=== PATIENT | male | born 1955 | race African-American/Black ===

== ENCOUNTER 2020-03-26 08:06 | Inpatient (IN) | payer OTHER ==
[~2020-03-26] VITALS: Ht 182.9 cm; Wt 64.0 kg
[2020-03-26 08:11] VITALS: BP 113/84
[2020-03-26] MEDS ORDERED: METFORMIN HCL500 M3 PO (08:30)
[2020-03-26] MEDS ORDERED: COZAAR 50 MG TA50 MG PO (08:31)
[2020-03-26] MEDS ORDERED: GABAPENTIN800 M1 PO (08:31)
[2020-03-26] MEDS ORDERED: ASA81BEC PO (08:31)
[2020-03-26] MEDS ORDERED: TOUJEO MAX300 UNIT/1 SUBQ (08:31)
[2020-03-26] MEDS ORDERED: NOVOLOG100 UNIT/M SUBQ (08:32)
[2020-03-26 08:43] LABS: ABSOLUTE NEUTROPHILS 3.7 thou/uL (1.4-8.2); BASOPHILS 0.5 % (0.0-2.0); EOSINOPHILS 1.2 % (0.0-3.0); HEMATOCRIT 47.2 % (42.0-52.0); HEMOGLOBIN 15.8 gm/dL (14.0-18.0); LYMPHOCYTES 35.7 % (24.0-44.0); MCH 33.7 pg (26.0-34.0); MCHC 33.5 g/dL (28.0-37.0); MCV 100.7 fL (80.0-100.0); MONOCYTES 7.4 % (1.0-8.0); PLATELET COUNT 226 thou/uL (150-400); POLYS 55.2 % (36.0-66.0); RBC 4.69 mil/uL (4.50-6.00); RDW 15.1 % (10.5-14.5); WBC 6.8 thou/uL (4.0-11.0)
[2020-03-26 08:51] LABS: ANION GAP 9 mmol/L (7-16); BUN 11 mg/dL (7-18); CALCIUM 9.9 mg/dL (8.5-10.1); CHLORIDE 100 mmol/L (98-107); CO2 26 mmol/L (21-32); CREATININE 1.1 mg/dL (0.7-1.3); GLUCOSE 233 mg/dL (74-106); POTASSIUM 3.5 mmol/L (3.5-5.1); SODIUM 135 mmol/L (136-145)
[2020-03-26 08:57] LABS: ALBUMIN 3.8 g/dL (3.4-5.0); DIRECT BILIRUBIN < 0.1 mg/dL (<0.1-0.2); SGOT 9 U/L (15-37); SGPT 18 U/L (16-63); TOTAL BILIRUBIN 0.4 mg/dL (0.2-1.0); TOTAL PROTEIN 8.4 g/dL (6.4-8.2)
[2020-03-26 13:26] LABS: URINE BILIRUBIN NEGATIVE (Negative); URINE BLOOD NEGATIVE (Negative); URINE CLARITY CLEAR; URINE COLOR YELLOW; URINE GLUCOSE-RANDOM* 1+ (Negative); URINE KETONES NEGATIVE (Negative); URINE LEUKOCYTES-REFLEX NEGATIVE (Negative); URINE NITRITE-REFLEX NEGATIVE (Negative); URINE PROTEIN (DIPSTICK) NEGATIVE (Negative)
[2020-03-26 13:34] LABS: FOLIC ACID 8.7 ng/mL (8.6-58.9)
[2020-03-26 14:00] VITALS: BP 156/81
[2020-03-26 14:14] VITALS: BP 156/81
[2020-03-26 14:53] VITALS: BP 158/81
[2020-03-26 15:19] VITALS: BP 168/89
--- NOTE | 2020-03-26 18:30 | NUR ---
PT RECEIVED FROM THE ER AT 1440 ALERT AND WITH SOME ABD PAIN LESSENED W/ IV MORPHINE. PT ASSESSED AND ORIENTED TO UNIT. TAKING SM AMT OF CLEAR LIQUIDS IT AGGRAVATES HIS ABD PAIN. GI CONSULT GIVEN TO ANSWERING SERVICE. POSSIBLE EGD TOMORROW.
[2020-03-26 19:33] VITALS: BP 177/85
[2020-03-27 05:24] LABS: HEMATOCRIT 41.1 % (42.0-52.0); MCH 33.6 pg (26.0-34.0); MCHC 33.2 g/dL (28.0-37.0); MCV 101.3 fL (80.0-100.0); RBC 4.06 mil/uL (4.50-6.00); RDW 14.9 % (10.5-14.5); WBC 4.9 thou/uL (4.0-11.0)
[2020-03-27 05:37] LABS: HEMOGLOBIN 13.7 gm/dL (14.0-18.0)
[2020-03-27 05:39] LABS: ALBUMIN 3.1 g/dL (3.4-5.0); CALCIUM 9.1 mg/dL (8.5-10.1); CREATININE 0.9 mg/dL (0.7-1.3); POTASSIUM 4.4 mmol/L (3.5-5.1); TOTAL BILIRUBIN 0.3 mg/dL (0.2-1.0)
--- NOTE | 2020-03-27 05:50 | NUR ---
Assumed care of patient this pm shift. Patient in good spirits, calm and cooperative. Alert and oriented x4. Takes medications whole. NPO after midnight for ultrasound of abdomen. Falls precautions in place. Left anticubital IV in place. Patient states that he would like to ambulate as this helps his pain. Morphine given for pain. Assessment shows no signs of acute distress. We will continue to monitor per hospital policy.
[2020-03-27 06:00] VITALS: BP 176/85
[2020-03-27 08:00] VITALS: BP 170/78
--- NOTE | 2020-03-27 09:06 | NUR ---
ORDERS RECEIVED FOR EVAL AND TREAT. SPOKE TO Pt WHO STATES HE IS HAVING NOT DIFFICULTY WITH HIS MOBILITY AND HOPING TO GO HOME SOON. Pt DECLINING A FORMAL P.T. EVAL AT THIS TIME.
--- NOTE | 2020-03-27 09:26 | NUR ---
ASSESSMENT: CM REVIEWED CHART AND SPOKE WITH PATIENT. PT IS ALERT AND ORIENTED X4. PT WAS ADMITTED DUE TO ABDOMINAL PAIN AND IS ON IV FLUIDS AND GI HAS BEEN CONSULTED. PT REPORTS LIVING AT HOME WITH HIS IN AN APT. PT REPORTS TWO FLIGHTS UP TO HIS APT WITH HANDRAILS. PT REPORTS THAT HE IS NORMALLY INDEPENDENT WITH ADLS AND AMBULATION BUT DOES HAVE A CANE HE USES AT TIMES. PT REPORTS HE THINKS HE HAS HAD HH IN THE PAST BUT UNSURE THE AGENCY. PT DENIES BEING TO A SNF IN THE PAST. CM DISCUSSED ROLE. PT DOES NOT ANTICIPATE HAVING ANY NEEDS FROM CM. CM WILL CONTINUE TO FOLLOW TO ASSIST NEEDED.
--- NOTE | 2020-03-27 11:10 | NUR ---
ASSUMED CARE AT 0700. PT IS A&O X4. PT COMPLAINS OF UPPPER ABD PAIN BUT HE STATES THAT IS NOT PAINFUL IT WAS A COUPLE OF DAYS AGO. PT IS ON CLEAR LIQUID DIET BUT DOES NOT WANT TO BE. PT STATES THAT HE NEEDS TO GO HOME AND WANTS ALL THE PROCEDURES DONE TODAY OR HE MAY JUST GO HOME. NOTIFIED DOCTOR CONCERNING THIS INFORMATION. PT IS NOT FALL PRECAUTION BUT CALL LIGHT WITHIN REACH. IV IS INTACT AND SHOWS NO SIGNS OF REDNESS OR SWELLLING. WILL CONTINUE TO MONITOR.
[2020-03-27 16:10] VITALS: BP 159/77
[2020-03-27 19:55] VITALS: BP 156/85
--- NOTE | 2020-03-28 04:53 | NUR ---
ASSUMED PT CARE AT SHIFT CHANGE. PT IS A&O X4. PT STATES THAT HE DOES NOT WANT TO TAKE ANY MORE MEDICATION/ FLUIDS. PT BLOOD SUGAR LEVEL CALLED FOR 12 UNITS OF INSULIN. PT STATES THAT HE IS READY TO GO HOME. GAVE REPORT TO AMAN TADEO) IN THE 0400 HOUR.
[2020-03-28 05:06] VITALS: BP 159/85
[2020-03-28 08:54] VITALS: BP 169/94
--- NOTE | 2020-03-28 12:53 | NUR ---
on-going assessment: CM REVIEWED CHART. PT HAS ORDERS TO DISCHARGE HOME TODAY NO NEEDS.
[2020-03-28 13:14] VITALS: BP 169/94
--- NOTE | 2020-03-28 14:27 | NUR ---
ASSUMED CARE OF THE PATIENT AT 0715, PATIENT ALERT AND ORIENTED X 4. PATIENT UP AD RICK. PATIENT DENIES PAIN OR NAUSEA THIS SHIFT. PATIENT READY TO GO HOME, PATIENT STATES HE HAD A BOWEL MOVEMENT THIS SHIFT/LOOSE. PATIENT ON FULL LIQUID DIET AND TOLERATING WELL. DR CROWDER HERE THIS AM, PATIENT WILL DISCHARGE TO HOME TODAY. THIS RN WENT OVER DISCHARGE PAPERWORK AND SENT ALL PERSONAL BELONGINGS WITH THE PATIENT. HERE TO TRANSPORT THE PATIENT HOME.
== END 2020-03-28 13:54 | disposition home or self-care (01) | DRG 439 ==
LOC: ER 08:06 → EROBS 12:58 → 4S 12:58
PROVIDERS: Emergency Medicine; ADMIT Hospitalist; ATTEND Hospitalist
DX: K85.90 Acute pancreatitis without necrosis or infection, unspecified (principal); E44.1 Mild protein-calorie malnutrition; Z68.1 Body mass index [BMI] 19.9 or less, adult; E86.0 Dehydration; R62.7 Adult failure to thrive; R63.4 Abnormal weight loss; E11.42 Type 2 diabetes mellitus with diabetic polyneuropathy; F17.200 Nicotine dependence, unspecified, uncomplicated; I10 Essential (primary) hypertension; K82.8 Other specified diseases of gallbladder; K59.00 Constipation, unspecified; Z79.899 Other long term (current) drug therapy; Z79.4 Long term (current) use of insulin
CPT/HCPCS: 10195

== ENCOUNTER 2021-01-19 10:31 | Emergency (ER) | payer OTHER ==
[~2021-01-19] VITALS: Ht 182.9 cm; Wt 74.8 kg
[~2021-01-19 10:31] MED LIST: ASA81BEC PO; COZAAR 50 MG TA50 MG PO; GABAPENTIN800 M1 PO; METFORMIN HCL500 M3 PO; NOVOLOG100 UNIT/M SUBQ; TOUJEO MAX300 UNIT/1 SUBQ
[2021-01-19] MEDS ORDERED: DULOXETINE HCL30 MG PO (10:43)
[2021-01-19] MEDS ORDERED: LOSARTAN POTASS50 MG PO (10:45)
[2021-01-19] MEDS ORDERED: NOVOLOG FL100 UNIT/M SUBQ (10:46)
[2021-01-19] MEDS ORDERED: LIPITOR 40 MG T40 M1 PO (10:47)
[2021-01-19] MEDS ORDERED: TOUJEO SOL300 UNIT/1 SUBQ (10:47)
[2021-01-19] MEDS ORDERED: NAPROSYN500 MG PO (11:36)
[2021-01-19] MEDS ORDERED: FLEXERIL PO (11:37)
[2021-01-19 13:44] VITALS: BP 170/90
== END 2021-01-19 13:46 | disposition home or self-care (01) ==
LOC: ER 10:31
DX: M25.512 Pain in left shoulder (principal); M54.12 Radiculopathy, cervical region; E11.9 Type 2 diabetes mellitus without complications; I10 Essential (primary) hypertension; Z79.82 Long term (current) use of aspirin; Z79.4 Long term (current) use of insulin; Z79.899 Other long term (current) drug therapy

== ENCOUNTER 2021-04-03 18:11 | Emergency (ER) | payer OTHER ==
[~2021-04-03] VITALS: Ht 182.9 cm; Wt 72.6 kg
[~2021-04-03 18:11] MED LIST changes: +DULOXETINE HCL30 MG PO; +FLEXERIL PO; +LIPITOR 40 MG T40 M1 PO; +LOSARTAN POTASS50 MG PO; +NAPROSYN500 MG PO; +NOVOLOG FL100 UNIT/M SUBQ; +TOUJEO SOL300 UNIT/1 SUBQ
[2021-04-03 19:38] LABS: ABSOLUTE NEUTROPHILS 2.7 thou/uL (1.4-8.2); BASOPHILS 1.5 % (0.0-2.0); EOSINOPHILS 1.2 % (0.0-3.0); HEMATOCRIT 43.9 % (42.0-52.0); HEMOGLOBIN 14.8 gm/dL (14.0-18.0); LYMPHOCYTES 49.2 % (24.0-44.0); MCH 34.6 pg (26.0-34.0); MCHC 33.8 g/dL (28.0-37.0); MCV 102.4 fL (80.0-100.0); MONOCYTES 5.9 % (1.0-8.0); PLATELET COUNT 209 thou/uL (150-400); POLYS 42.2 % (36.0-66.0); RBC 4.29 mil/uL (4.50-6.00); RDW 15.8 % (10.5-14.5); WBC 6.5 thou/uL (4.0-11.0)
[2021-04-03 19:52] LABS: CALCIUM 8.8 mg/dL (8.5-10.1); CREATININE 1.2 mg/dL (0.7-1.3); POTASSIUM 4.5 mmol/L (3.5-5.1)
[2021-04-03 19:58] LABS: ALBUMIN 3.6 g/dL (3.4-5.0); MAGNESIUM 1.9 mg/dL (1.8-2.4); TOTAL BILIRUBIN 0.2 mg/dL (0.2-1.0); TOTAL PROTEIN 6.8 g/dL (6.4-8.2)
[2021-04-03] MEDS ORDERED: MELOXICAM15 MG PO (20:17)
[2021-04-03 21:00] VITALS: BP 142/79
== END 2021-04-03 21:00 | disposition home or self-care (01) ==
LOC: ER 18:11
PROVIDERS: Emergency Medicine
DX: T24.231A Burn of second degree of right lower leg, initial encounter (principal); T31.0 Burns involving less than 10% of body surface; E11.9 Type 2 diabetes mellitus without complications; I10 Essential (primary) hypertension; Z79.899 Other long term (current) drug therapy